=== PATIENT | female | born 1950 | race Caucasian/White ===

== ENCOUNTER 2020-03-30 15:59 | Emergency (ER) | payer MEDICARE ==
[2020-03-30] MEDS ORDERED: Zofran 4 MG/2 ML VIAL IV ONE (16:24)
[2020-03-30] MEDS ORDERED: Pepcid 20 MG VIAL IV ONE ×2 (16:24→16:29)
[2020-03-30] MEDS ORDERED: GI COCKTAIL 45 ML (Maalox/Lidocaine) PO ONE (16:24)
[2020-03-30] MEDS ORDERED: DEMEROL 25MG SYRINGE IV ONE (16:26)
[2020-03-30] MEDS ORDERED: Zofran 4 MG/2 ML VIAL ONE (16:29)
--- NOTE | 2020-03-30 16:29 | ERPHSYRPT ---
- History of Present Illness Time Seen by Provider: 03/30/20 16:21 Historian: patient Patient Subjective Stated Complaint: Pt stated that she began having pain in her mid epigastric region that radiates to her left lower quadrant of her abdomen, states that it has been coming and going but since yesterday it has been pretty consistent and rating the pain 10/10 Triage Nursing Assessment: Pt brought her self to the ER, holding right abdomen , rates pain 10/10, hypertensive, pulses normal, pain to left abdomen with palapatation, pt squirming in the bed and unable to get comfortable, skin n/w/d, Physician History: 70 years old female presented in the ER with chief complaint of off-and-on epigastric pain for quite some time which is progressively worsening and she is having constant pain since last night, moderate to severe intensity, sharp in nature, radiating to back, left upper and lower quadrants without any significant aggravating or relieving factors. Denies any nausea vomiting or diarrhea. No fever or chills reported. Denies any chest pain palpitations or shortness of breath. Timing/Duration: week(s), intermittent, gradual onset, worse Activities at Onset: rest Quality: sharpness Abdominal Pain Onset Location: epigastric Pain Radiation: LUQ, LLQ Severity of Pain-Max: severe Severity of Pain-Current: severe Modifying Factors: Improves With: nothing Associated Symptoms: back Allergies/Adverse Reactions: codeine Allergy (Verified 03/30/20 16:18) ketorolac tromethamine [From Toradol] Allergy (Verified 03/30/20 16:18) morphine Allergy (Verified 03/30/20 16:18) Home Medications: Carvedilol 12.5 mg [Coreg 12.5 mg] 12.5 mg PO DAILY 03/30/20 [History] Losartan Potassium 100 mg PO DAILY 03/30/20 [History] Sertraline HCl 50 mg [Zoloft 50 mg Tablet] 50 mg PO DAILY 03/30/20 [History] Zolpidem Tartrate 10 mg PO DAILY 03/30/20 [History] Hx Tetanus, Diphtheria Vaccination/Date Given: (UNKNOWN) Hx Influenza Vaccination/Date Given: Yes Hx Pneumococcal Vaccination/Date Given: No Travel Risk - International Travel Have you traveled outside of the country in past 3 weeks: No Have you or anyone close to you been diagnosed with or: No Do your reside in a community with a known COVID-19 case?: Yes If Yes where:: [place] - Coronavirus Screening Has patient experienced Coronavirus symptoms: No - Review of Systems Constitutional: No Symptoms Eyes: No Symptoms Ears, Nose, & Throat: No Symptoms Respiratory: No Symptoms Cardiac: No Symptoms Abdominal/Gastrointestinal: Abdominal Pain Genitourinary Symptoms: No Symptoms Musculoskeletal: No Symptoms Neurological: No Symptoms Psychological: No Symptoms Endocrine: No Symptoms Hematologic/Lymphatic: No Symptoms Immunological/Allergic: No Symptoms - Past Medical History Pertinent Past Medical History: Yes Cardiac History: High Cholesterol, Hypertension Psycho-Social History: Anxiety - Past Surgical History Past Surgical History: Yes Gastrointestinal: Cholecystectomy Musculoskeletal: Orthopedic Surgery Female Surgical History: Hysterectomy Other Surgical History: ERCP, EAR SURGERY X3, cochlear implant - Social History Smoking Status: Never smoker Exposure to second hand smoke: No Drug Use: none Patient Lives Alone: No - Nursing Vital Signs Nursing Vital Signs: Initial Vital Signs Pulse Rate 68 03/30/20 16:42 Respiratory Rate 16 03/30/20 16:42 Blood Pressure 176/84 03/30/20 16:42 O2 Sat by Pulse Oximetry 98 03/30/20 16:42 Pain Scale Pain Intensity 3 - Physical Exam General Appearance: no apparent distress Eye Exam: PERRL/EOMI, eyes nml inspection Ears, Nose, Throat Exam: normal ENT inspection, pharynx normal Neck Exam: normal inspection, supple, full range of motion Respiratory Exam: normal breath sounds, lungs clear Cardiovascular Exam: regular rate/rhythm, normal heart sounds Gastrointestinal/Abdomen Exam: soft, tenderness (Epigastric/left upper and lower quadrant/flank) Back Exam: normal inspection, normal range of motion Extremity Exam: normal inspection Neurologic Exam: alert, oriented x 3, cooperative Skin Exam: normal color SpO2 Interpretation: normal O2 Delivery: Room Air - Course Nursing assessment & vital signs reviewed: Yes EKG Interpreted by Me: RATE ([id number]), Sinus Rhythm, NORMAL AXIS, NORMAL INTERVALS, Non-specific ST Changes Ordered Tests: Active Orders 24 hr Category Date Time Status EKG-ER Only STAT Care 03/30/20 16:24 Active IV Insertion STAT Care 03/30/20 16:15 Active NPO (ED) STAT Care 03/30/20 16:24 Active ABDOMEN AND PELVIS W CONTRAST [CT] Stat Exams 03/30/20 18:04 Taken AMYLASE Stat Lab 03/30/20 17:00 Completed CBC W DIFF Stat Lab 03/30/20 17:00 Completed CMP Stat Lab 03/30/20 17:00 Completed LIPASE Stat Lab 03/30/20 17:00 Completed TROPONIN Q3H Lab 03/30/20 17:00 Completed TROPONIN Q3H Lab 03/30/20 19:30 Ordered TROPONIN Q3H Lab 03/30/20 22:30 Ordered TROPONIN Q3H Lab 03/31/20 01:30 Ordered TROPONIN Q3H Lab 03/31/20 04:30 Ordered UA W/RFX UR CULTURE Stat Lab 03/30/20 17:00 Completed Medication Summary Discontinued Medications Generic Name Dose Route Start Last Admin Trade Name Freq PRN Reason Stop Dose Admin Al Hydrox/Mg Hydrox/Simethicone Confirm 03/30/20 16:31 Maalox Es 30 Ml Unit Dose Administered 03/30/20 16:32 Dose 30 ml .ROUTE .STK-MED ONE Famotidine 20 mg 03/30/20 16:24 03/30/20 16:36 Pepcid 20 Mg Vial IV 03/30/20 16:25 20 mg STAT ONE Administration Famotidine Confirm 03/30/20 16:29 Pepcid 20 Mg Vial Administered 03/30/20 16:30 Dose 20 mg IV .STK-MED ONE Sodium Chloride 500 mls @ 499 mls/hr 03/30/20 16:24 03/30/20 19:05 Sodium Chloride 0.9% 1000 Ml IV 03/30/20 17:24 499 mls/hr .Q1H1M STA Infusion Sodium Chloride Confirm 03/30/20 16:31 Sodium Chloride 0.9% 1000 Ml Administered 03/30/20 16:32 Dose 1,000 mls @ ud .ROUTE .STK-MED ONE Lidocaine HCl Confirm 03/30/20 16:31 Xylocaine Hcl Viscous * Administered 03/30/20 16:32 Dose 15 ml .ROUTE .STK-MED ONE Magnesium Hydroxide 45 ml 03/30/20 16:24 03/30/20 16:37 Gi Cocktail 45 Ml (Maalox/Lidocaine) PO 03/30/20 16:25 45 ml STAT ONE Administration Meperidine HCl 25 mg 03/30/20 16:26 03/30/20 16:36 Demerol 25mg Syringe IV 03/30/20 16:27 25 mg STAT ONE Administration Meperidine HCl Confirm 03/30/20 16:30 Demerol 25mg Syringe Administered 03/30/20 16:31 Dose 25 mg .ROUTE .STK-MED ONE Ondansetron HCl 4 mg 03/30/20 16:24 03/30/20 16:36 Zofran 4 Mg/2 Ml Vial IV 03/30/20 16:25 4 mg STAT ONE Administration Ondansetron HCl Confirm 03/30/20 16:29 Zofran 4 Mg/2 Ml Vial Administered 03/30/20 16:30 Dose 4 mg .ROUTE .STK-MED ONE Lab/Rad Data: Laboratory Result Diagrams 03/30/20 17:00 03/30/20 17:00 Laboratory Results 03/30/20 03/30/20 03/30/20 Range/Units 17:00 17:00 17:00 WBC (4.0-10.5) K/mm3 RBC (4.1-5.4) M/mm3 Hgb (12.0-16.0) gm/dl Hct (35-47) % MCV (78-100) fl MCH (26-32) pg MCHC (32-36) g/dl RDW (11.5-14.0) % Plt Count (150-450) K/mm3 MPV (7.5-11.0) fl Gran % (36.0-66.0) % Eos # (Auto) (0-0.5) Absolute Lymphs (auto) (1.0-4.6) Absolute Monos (auto) (0.0-1.3) Lymphocytes % (24.0-44.0) % Monocytes % (0.0-12.0) % Eosinophils % (0.00-5.0) % Basophils % (0.0-0.4) % Absolute Granulocytes (1.4-6.9) Basophils # (0-0.4) Sodium 140 (137-145) mmol/L Potassium 3.8 (3.5-5.1) mmol/L Chloride 108 H (98-107) mmol/L Carbon Dioxide 23 (22-30) mmol/L Anion Gap 13.1 (5-15) MEQ/L BUN 10 (7-17) mg/dL Creatinine 1.01 (0.52-1.04) mg/dL Estimated GFR 57.6 ML/MIN Glucose 100 (74-106) mg/dL Calcium 9.0 (8.4-10.2) mg/dL Total Bilirubin 0.50 (0.2-1.3) mg/dL AST 26 (14-36) U/L ALT 17 (0-35) U/L Alkaline Phosphatase 105 (38-126) U/L Troponin I < 0.012 (0.000-0.034) ng/mL Serum Total Protein 7.6 (6.3-8.2) g/dL Albumin 4.1 (3.5-5.0) g/dL Amylase 80 (30-110) U/L Lipase 123 (23-300) U/L Urine Color STRAW (YELLOW) Urine Appearance CLEAR (CLEAR) Urine pH 6.0 (5-6) Ur Specific [place] 1.006 (1.005-1.025) Urine Protein NEGATIVE (Negative) Urine Ketones NEGATIVE (NEGATIVE) Urine Blood NEGATIVE (0-5) Maciel/ul Urine Nitrite NEGATIVE (NEGATIVE) Urine Bilirubin NEGATIVE (NEGATIVE) Urine Urobilinogen NEGATIVE (0-1) mg/dL Ur Leukocyte Esterase NEGATIVE (NEGATIVE) Urine WBC (Auto) NONE (0-5) /HPF Urine RBC (Auto) NONE (0-2) /HPF U Epithel Cells (Auto) NONE (FEW) /HPF Urine Bacteria (Auto) NONE (NEGATIVE) /HPF Urine Mucus (Auto) SLIGHT (NEGATIVE) /HPF Urine Culture Reflexed NO (NO) Urine Glucose NEGATIVE (NEGATIVE) mg/dL 03/30/20 Range/Units 17:00 WBC 5.7 (4.0-10.5) K/mm3 RBC 4.39 (4.1-5.4) M/mm3 Hgb 13.3 (12.0-16.0) gm/dl Hct 41.6 (35-47) % MCV 94.8 (78-100) fl MCH 30.3 (26-32) pg MCHC 32.0 (32-36) g/dl RDW 14.5 H (11.5-14.0) % Plt Count 213 (150-450) K/mm3 MPV 9.5 (7.5-11.0) fl Gran % 48.5 (36.0-66.0) % Eos # (Auto) 0.07 (0-0.5) Absolute Lymphs (auto) 2.55 (1.0-4.6) Absolute Monos (auto) 0.31 (0.0-1.3) Lymphocytes % 44.6 H (24.0-44.0) % Monocytes % 5.4 (0.0-12.0) % Eosinophils % 1.2 (0.00-5.0) % Basophils % 0.3 (0.0-0.4) % Absolute Granulocytes 2.77 (1.4-6.9) Basophils # 0.02 (0-0.4) Sodium (137-145) mmol/L Potassium (3.5-5.1) mmol/L Chloride (98-107) mmol/L Carbon Dioxide (22-30) mmol/L Anion Gap (5-15) MEQ/L BUN (7-17) mg/dL Creatinine (0.52-1.04) mg/dL Estimated GFR ML/MIN Glucose (74-106) mg/dL Calcium (8.4-10.2) mg/dL Total Bilirubin (0.2-1.3) mg/dL AST (14-36) U/L ALT (0-35) U/L Alkaline Phosphatase (38-126) U/L Troponin I (0.000-0.034) ng/mL Serum Total Protein (6.3-8.2) g/dL Albumin (3.5-5.0) g/dL Amylase (30-110) U/L Lipase (23-300) U/L Urine Color (YELLOW) Urine Appearance (CLEAR) Urine pH (5-6) Ur Specific [place] (1.005-1.025) Urine Protein (Negative) Urine Ketones (NEGATIVE) Urine Blood (0-5) Maciel/ul Urine Nitrite (NEGATIVE) Urine Bilirubin (NEGATIVE) Urine Urobilinogen (0-1) mg/dL Ur Leukocyte Esterase (NEGATIVE) Urine WBC (Auto) (0-5) /HPF Urine RBC (Auto) (0-2) /HPF U Epithel Cells (Auto) (FEW) /HPF Urine Bacteria (Auto) (NEGATIVE) /HPF Urine Mucus (Auto) (NEGATIVE) /HPF Urine Culture Reflexed (NO) Urine Glucose (NEGATIVE) mg/dL - Progress Progress: improved, re-examined Progress Note: 03/30/20 19:32 70 years old is evaluated for upper abdominal pain with radiation to the left groin. She is given Protonix along with pain medication and fluids, on reevaluation her pain is almost completely resolved. Acute abdomen work-up is negative including CT abdomen pelvis with contrast. I have also checked troponin which is negative and EKG did not show any acute ST elevations. Patient later told that she has a history of GERD in the past and was taking omeprazole but was taken off, with her symptoms and presentation, could be acid peptic disease. I have discussed with her about restarting PPIs and Carafate and outpatient follow-up with primary care and gastroenterology. At this point I do not think she needs any further work-up and is stable for discharge. Counseled pt/family regarding: lab results, diagnosis, need for follow-up, rad results - Departure Departure Disposition: Home Clinical Impression: Epigastric pain Condition: Stable Critical Care Time: No Referrals: HERLINDA LÓPEZ MD [Primary Care Provider] - (1-2 days for reevaluation) Instructions: Acute Abdomen (Belly Pain) Additional Instructions: Follow-up with primary care and gastroenterology for reevaluation. Return to ER for any worsening. Do not take ibuprofen, take Tylenol as needed only. Prescriptions: PANTOPRAZOLE 40 mg Tablet [Protonix 40MG Tablet] 40 mg PO QAM 30 Days #30 tab Sucralfate 1 gm [Carafate 1 GM] 1 g PO ACHS #60 tablet
[2020-03-30] MEDS ORDERED: DEMEROL 25MG SYRINGE ONE (16:30)
[2020-03-30] MEDS ORDERED: XYLOCAINE HCl Viscous ONE (16:31)
[2020-03-30] MEDS ORDERED: Sodium Chloride 0.9% 1000 ML 1,000 ML ONE (16:31)
[2020-03-30] MEDS ORDERED: MAALOX ES 30 ML UNIT DOSE ONE (16:31)
[2020-03-30 17:24] LABS: ALBUMIN 4.1 g/dL (3.5-5.0); ANION GAP 13.1 MEQ/L (5-15); BILIRUBIN,TOTAL 0.5 mg/dL (0.2-1.3); Creatinine 1 1.01 mg/dL (0.52-1.04); Potassium 3.8 mmol/L (3.5-5.1); Total Protein 7.6 g/dL (6.3-8.2)
[2020-03-30 17:26] LABS: Absolute Neutrophil Ct (ANC) 2.77 (1.4-6.9); BASOPHIL % 0.3 % (0.0-0.4); Basophil (Absolute #) 0.02 (0-0.4); Eosinophil % 1.2 % (0.00-5.0); Eosinophil (Absolute #) 0.07 (0-0.5); Hematocrit 41.6 % (35-47); Hemoglobin 13.3 gm/dl (12.0-16.0); Lymphocyte (Absolute #) 2.55 (1.0-4.6); Lymphocytes % 44.6 % (24.0-44.0); Mean Cell Volume 94.8 fl (78-100); Mean Corpuscular Hemoglobin 30.3 pg (26-32); Mean Platelet Volume 9.5 fl (7.5-11.0); Monocyte (Absolute #) 0.31 (0.0-1.3); Monocytes % 5.4 % (0.0-12.0); Neutrophil % 48.5 % (36.0-66.0); Platelet Count 213 K/mm3 (150-450); Red Blood Count 4.39 M/mm3 (4.1-5.4); Red Cell Distribution Width 14.5 % (11.5-14.0); White Blood Count 5.7 K/mm3 (4.0-10.5)
[2020-03-30 17:34] LABS: Appearance CLEAR (CLEAR); Bilirubin NEGATIVE (NEGATIVE); Blood NEGATIVE Ery/ul (0-5); Glucose NEGATIVE (NEGATIVE); Ketones NEGATIVE (NEGATIVE); Leukocyte Esterase NEGATIVE (NEGATIVE); Mucus SLIGHT /HPF (NEGATIVE); Nitrite NEGATIVE (NEGATIVE); Protein,Urine Dip NEGATIVE (Negative); Specific Gravity 1.006 (1.005-1.025); Urobilinogen NEGATIVE mg/dL (0-1)
[2020-03-30] MEDS ORDERED: NORCO 5/325 MG PO ONE (19:40)
[2020-03-30] MEDS ORDERED: NORCO 5/325 MG ONE (19:42)
[2020-03-30 19:48] VITALS: BP 157/84; PULSE 68; O2SAT 96
--- NOTE | 2020-03-30 21:33 | XRAY ---
Indication: Bilateral upper abdomen pain 2 weeks. Multiple contiguous axial images obtained through the abdomen and pelvis using 80 cc Isovue-370 contrast only. Comparison: None Lung bases demonstrates minimal bibasilar dependent atelectasis. No infiltrate or effusion. Heart is not enlarged. Noncontrasted stomach and bowel loops appear nonobstructed. Appendix not seen. Minimal sigmoid diverticulosis without diverticulitis. Previous cholecystectomy and hysterectomy. No free fluid/air. Kidneys enhance and excrete with 1 m right mid renal cortical cyst. Remaining liver, pancreas, spleen, adrenal glands, kidneys, ureters, and bladder appear unremarkable. Mild scattered aortoiliac calcifications. No AAA or pathological retroperitoneal lymphadenopathy. Osseous structures intact with mild degenerative changes throughout the thoracolumbar spine. Impression: 1. Sigmoid diverticulosis and right renal cyst. 2. Remaining CT abdomen/pelvis with contrast exam is negative.
== END 2020-03-30 19:58 | disposition home or self-care (01) ==
LOC: ED 15:59
DX: R10.13 Epigastric pain (principal); R10.32 Left lower quadrant pain; R10.12 Left upper quadrant pain; Z79.899 Other long term (current) drug therapy; I10 Essential (primary) hypertension; E78.00 Pure hypercholesterolemia, unspecified
CPT/HCPCS: 36000; 36415; 74177; 80053; 81001; 82150; 83690; 84484; 85025; 93005; 96360; 96374; 96375; 99284; J2175; J2405; A9270-GY

== ENCOUNTER 2023-05-06 11:57 | Emergency (ER) | payer MEDICARE ==
[2023-05-06] MEDS ORDERED: Zofran 4 MG/2 ML VIAL IV ONE (12:14)
[2023-05-06] MEDS ORDERED: Sodium Chloride 0.9% 1000 ML 1,000 ML IV STA ×2 (12:14→14:31)
[2023-05-06] MEDS ORDERED: Zofran 4 MG/2 ML VIAL ONE (12:23)
[2023-05-06] MEDS ORDERED: Sodium Chloride 0.9% 1000 ML 1,000 ML ONE ×3 (12:23→14:33)
[2023-05-06 12:27] LABS: Absolute Neutrophil Ct (ANC) 4.65 x10^3/uL (1.4-6.9); BASOPHIL % 0.3 % (0.0-0.4); Basophil (Absolute #) 0.02 x10^3/uL (0-0.4); Eosinophil % 1.3 % (0.00-5.0); Eosinophil (Absolute #) 0.09 x10^3/uL (0-0.5); Hematocrit 37.5 % (35-47); Hemoglobin 11.8 g/dL (12.0-16.0); IMMATURE GRAN # 0.02 x10^3u/L (0.00-0.03); IMMATURE GRAN % 0.3 % (0.00-0.4); Lymphocyte (Absolute #) 1.66 x10^3/uL (1.0-4.6); Lymphocytes % 24.5 % (24.0-44.0); Mean Cell Volume 99.7 fL (78-100); Mean Corpuscular Hemoglobin 31.4 pg (26-32); Mean Corpuscular Hgb Concent. 31.5 g/dL (32-36); Mean Platelet Volume 10.1 fL (7.5-11.0); Monocyte (Absolute #) 0.34 x10^3/uL (0.0-1.3); Neutrophil % 68.6 % (36.0-66.0); Platelet Count 234 x10^3/uL (150-450); Red Blood Count 3.76 x10^6/uL (4.1-5.4); Red Cell Distribution Width 14.9 % (11.5-14.0); White Blood Count 6.8 x10^3/uL (4.0-10.5)
[2023-05-06 12:42] LABS: INR 1.02 (0.8-3.0); PROTIME 11.1 SECONDS (9.4-12.5)
[2023-05-06 13:09] LABS: ALBUMIN 3.8 g/dL (3.5-5.0); ANION GAP 12.5 MEQ/L (5-15); BILIRUBIN,TOTAL 0.9 mg/dL (0.2-1.3); Calcium 8.5 mg/dL (8.4-10.2); Creatinine 1 1.43 mg/dL (0.52-1.04); EST GLOMERULAR FILTRATION RATE 38.2 ML/MIN; Total Protein 7.3 g/dL (6.3-8.2)
--- NOTE | 2023-05-06 13:15 | ERPHSYRPT ---
- History of Present Illness Time Seen by Provider: 05/06/23 12:20 Source: patient Exam Limitations: no limitations Patient Subjective Stated Complaint: Diarrhea Triage Nursing Assessment: Patient brought back to ED per w/c and transferred self to bed. Patient A+O X 3. Patient's skin pink, warm and dry. Patient complains of N/V, diarrhea and dizziness for the past 4 days. Patient denies pain or discomfort. Patient was seen in [facility] prior to coming to ED and was tested for COVID/FLU/RSV, which were negative. Patient was sent to ER for furt her eval. Abdomen soft and round with BS X 4. Physician History: Patient is a 73-year-old white female who presents with a complaint of diarrhea for 4 days and then for the last 2 days she has had profound nausea and vomiting she also has been dizzy with standing. She denies any fever or sweats but says she has had some chills her pain is primarily in the epigastric area. She was seen at the [facility] prior to arrival in the ER where she had COVID flu and RSV test which were all negative and they sent her to the ER for further evaluation. Timing/Duration: day(s) (4) Severity: severe Modifying Factors: Improves With: nothing Associated Symptoms: nausea, vomiting, abdominal pain Allergies/Adverse Reactions: codeine Allergy (Verified 05/06/23 12:07) ketorolac tromethamine [From Toradol] Allergy (Verified 05/06/23 12:07) morphine Allergy (Verified 05/06/23 12:07) Home Medications: Carvedilol 12.5 mg [Coreg 12.5 mg] 12.5 mg PO DAILY 03/30/20 [History] Sertraline HCl 50 mg [Zoloft 50 mg Tablet] 50 mg PO DAILY 03/30/20 [History] Hx Tetanus, Diphtheria Vaccination/Date Given: (UNKNOWN) Hx Influenza Vaccination/Date Given: Yes Hx Pneumococcal Vaccination/Date Given: Yes Immunizations Up to Date: Yes Travel Risk - International Travel Have you traveled outside of the country in past 3 weeks: No - Coronavirus Screening Are you exhibiting any of the following symptoms?: No Close contact with a COVID-19 positive Pt in past 14-21 Days: No - Vaccine Status Have you recieved a Covid-19 vaccination: Yes Financial Planning Consultant: Unknown - Vaccination Dates Dates if Unknown: na - Review of Systems Constitutional: No Fever, No Chills Eyes: No Symptoms Ears, Nose, & Throat: No Symptoms Respiratory: No Cough, No Dyspnea Cardiac: No Chest Pain, No Edema, No Syncope Abdominal/Gastrointestinal: Abdominal Pain, Nausea, Vomiting, Diarrhea Genitourinary Symptoms: No Dysuria Musculoskeletal: No Back Pain, No Neck Pain Skin: No Rash Neurological: Vertigo, No Dizziness, No Focal Weakness, No Sensory Changes Psychological: No Symptoms Endocrine: No Symptoms All Other Systems: Reviewed and Negative - Past Medical History Pertinent Past Medical History: Yes Neurological History: No Pertinent History Cardiac History: Coronary Artery Disease, High Cholesterol, Hypertension Respiratory History: No Pertinent History Endocrine Medical History: No Pertinent History Psycho-Social History: Anxiety Other Medical History: Cardiac stent 12/2022. R cochlear implant - Past Surgical History Past Surgical History: Yes Gastrointestinal: Cholecystectomy Musculoskeletal: Orthopedic Surgery Female Surgical History: Hysterectomy Other Surgical History: ERCP, EAR SURGERY X3, cochlear implant - Social History Smoking Status: Never smoker Exposure to second hand smoke: No Drug Use: none Patient Lives Alone: No - Nursing Vital Signs Nursing Vital Signs: Initial Vital Signs Temperature 96.1 F 05/06/23 12:11 Pulse Rate 61 05/06/23 12:11 Respiratory Rate 18 05/06/23 12:11 Blood Pressure 126/65 05/06/23 12:11 O2 Sat by Pulse Oximetry 98 05/06/23 12:11 Pain Scale Pain Intensity 0 - Physical Exam General Appearance: no apparent distress, alert Eye Exam: PERRL/EOMI, eyes nml inspection Ears, Nose, Throat Exam: normal ENT inspection, TMs normal, pharynx normal, mo ist mucous membranes Neck Exam: normal inspection, non-tender, supple, full range of motion Respiratory Exam: normal breath sounds, lungs clear, No respiratory distress Cardiovascular Exam: regular rate/rhythm, normal heart sounds, normal peripheral pulses Gastrointestinal/Abdomen Exam: soft, normal bowel sounds, tenderness (Some slight tenderness without guarding or rebound in the epigastric area), No mass Pelvic Exam: not done Rectal Exam: deferred Back Exam: normal inspection, normal range of motion, No CVA tenderness, No vertebral tenderness Extremity Exam: normal inspection, normal range of motion, pelvis stable Neurologic Exam: alert, oriented x 3, cooperative, normal mood/affect, nml cerebellar function, nml station & gait, sensation nml, No motor deficits Skin Exam: normal color, warm, dry, No rash Lymphatic Exam: No adenopathy SpO2 Interpretation: normal SpO2: 98 O2 Delivery: Room Air - Course Nursing assessment & vital signs reviewed: Yes EKG Interpreted by Me: RATE (57), Sinus Rhythm, NORMAL AXIS, NORMAL INTERVALS, NORMAL QRS, NORMAL ST-T - CT Exams Abdomen/Pelvis CT Interpretation: Tele-radiologist Report (Stable) Ordered Tests: Active Orders 24 hr Category Date Time Status IV Insertion STAT Care 05/06/23 12:14 Active Orthostatic Vital Signs STAT Care 05/06/23 12:14 Active ABDOMEN AND PELVIS W/0 CONTRAS [CT] Stat Exams 05/06/23 12:14 Taken AMYLASE Stat Lab 05/06/23 12:20 Completed CBC W DIFF Stat Lab 05/06/23 12:20 Completed CMP Stat Lab 05/06/23 12:20 Completed CULTURE,URINE Stat Lab 05/06/23 14:05 Received LIPASE Stat Lab 05/06/23 12:20 Completed Lactic Acid Stat Lab 05/06/23 12:23 Completed POCT GLUCOSE Stat Lab 05/06/23 12:15 Completed PROTIME WITH INR Stat Lab 05/06/23 12:20 Completed TROPONIN Q4H Lab 05/06/23 12:20 Completed TROPONIN Q4H Lab 05/06/23 16:30 Ordered TROPONIN Q4H Lab 05/06/23 20:30 Ordered Medication Summary Discontinued Medications Generic Name Dose Route Start Last Admin Trade Name Mohitq PRN Reason Stop Dose Admin Sodium Chloride 1,000 mls @ 999 mls/hr 05/06/23 12:14 05/06/23 14:15 Sodium Chloride 0.9% 1000 Ml IV 05/06/23 13:14 Infused .Q1H1M STA Infusion Sodium Chloride Confirm 05/06/23 12:23 Sodium Chloride 0.9% 1000 Ml Administered 05/06/23 12:24 Dose 1,000 mls @ ud .ROUTE .STK-MED ONE Sodium Chloride 1,000 mls @ 999 mls/hr 05/06/23 13:37 05/06/23 15:42 Sodium Chloride 0.9% 1000 Ml IV 05/06/23 14:37 Infused .Q1H1M STA Infusion Sodium Chloride Confirm 05/06/23 13:40 Sodium Chloride 0.9% 1000 Ml Administered 05/06/23 13:41 Dose 1,000 mls @ ud .ROUTE .STK-MED ONE Sodium Chloride 1,000 mls @ 999 mls/hr 05/06/23 14:31 05/06/23 15:42 Sodium Chloride 0.9% 1000 Ml IV 05/06/23 15:31 Infused .Q1H1M STA Infusion Sodium Chloride Confirm 05/06/23 14:33 Sodium Chloride 0.9% 1000 Ml Administered 05/06/23 14:34 Dose 1,000 mls @ ud .ROUTE .STK-MED ONE Metronidazole 500 mg in 100 mls @ 200 mls/hr 05/06/23 15:39 05/06/23 16:01 Flagyl 500 Mg Ivpb IV 05/06/23 16:08 200 mls/hr STAT STA 200 mls/hr Administration Metronidazole Confirm 05/06/23 15:55 Flagyl 500 Mg Ivpb Administered 05/06/23 15:56 Dose 500 mg in 100 mls @ ud IV .STK-MED ONE Ondansetron HCl 4 mg 05/06/23 12:14 05/06/23 12:24 Ondansetron Hcl 4 Mg/2 Ml Vial IV 05/06/23 12:15 4 mg STAT ONE Administration Ondansetron HCl Confirm 05/06/23 12:23 Ondansetron Hcl 4 Mg/2 Ml Vial Administered 05/06/23 12:24 Dose 4 mg .ROUTE .STK-MED ONE Lab/Rad Data: Laboratory Result Diagrams 05/06/23 12:20 05/06/23 12:20 Laboratory Results 05/06/23 05/06/23 05/06/23 Range/Units 12:23 12:20 12:20 WBC (4.0-10.5) x10^3/uL RBC (4.1-5.4) x10^6/uL Hgb (12.0-16.0) g/dL Hct (35-47) % MCV (78-100) fL MCH (26-32) pg MCHC (32-36) g/dL RDW (11.5-14.0) % Plt Count (150-450) x10^3/uL MPV (7.5-11.0) fL Gran % (36.0-66.0) % Immature Gran % (Auto) (0.00-0.4) % Nucleat RBC Rel Count (0.00-0.1) % Eos # (Auto) (0-0.5) x10^3/uL Immature Gran # (Auto) (0.00-0.03) x10^3u/L Absolute Lymphs (auto) (1.0-4.6) x10^3/uL Absolute Monos (auto) (0.0-1.3) x10^3/uL Absolute Nucleated RBC (0.00-0.01) x10^3u/L Lymphocytes % (24.0-44.0) % Monocytes % (0.0-12.0) % Eosinophils % (0.00-5.0) % Basophils % (0.0-0.4) % Absolute Granulocytes (1.4-6.9) x10^3/uL Basophils # (0-0.4) x10^3/uL PT 11.1 (9.4-12.5) SECONDS INR 1.02 (0.8-3.0) Sodium (137-145) mmol/L Potassium (3.5-5.1) mmol/L Chloride (98-107) mmol/L Carbon Dioxide (22-30) mmol/L Anion Gap (5-15) MEQ/L BUN (7-17) mg/dL Creatinine (0.52-1.04) mg/dL Estimated GFR ML/MIN Glucose (74-106) mg/dL POC Glucometer (74 to 106) mg/dL Lactic Acid 1.3 (0.4-2.0) Calcium (8.4-10.2) mg/dL Total Bilirubin (0.2-1.3) mg/dL AST (14-36) U/L ALT (0-35) U/L Alkaline Phosphatase (38-126) U/L Troponin I < 0.012 (0.000-0.034) ng/mL Serum Total Protein (6.3-8.2) g/dL Albumin (3.5-5.0) g/dL Amylase (30-110) U/L Lipase (23-300) U/L 05/06/23 05/06/23 05/06/23 Range/Units 12:20 12:20 12:15 WBC 6.8 (4.0-10.5) x10^3/uL RBC 3.76 L (4.1-5.4) x10^6/uL Hgb 11.8 L (12.0-16.0) g/dL Hct 37.5 (35-47) % MCV 99.7 (78-100) fL MCH 31.4 (26-32) pg MCHC 31.5 L (32-36) g/dL RDW 14.9 H (11.5-14.0) % Plt Count 234 (150-450) x10^3/uL MPV 10.1 (7.5-11.0) fL Gran % 68.6 H (36.0-66.0) % Immature Gran % (Auto) 0.3 (0.00-0.4) % Nucleat RBC Rel Count 0.0 (0.00-0.1) % Eos # (Auto) 0.09 (0-0.5) x10^3/uL Immature Gran # (Auto) 0.02 (0.00-0.03) x10^3u/L Absolute Lymphs (auto) 1.66 (1.0-4.6) x10^3/uL Absolute Monos (auto) 0.34 (0.0-1.3) x10^3/uL Absolute Nucleated RBC 0.00 (0.00-0.01) x10^3u/L Lymphocytes % 24.5 (24.0-44.0) % Monocytes % 5.0 (0.0-12.0) % Eosinophils % 1.3 (0.00-5.0) % Basophils % 0.3 (0.0-0.4) % Absolute Granulocytes 4.65 (1.4-6.9) x10^3/uL Basophils # 0.02 (0-0.4) x10^3/uL PT (9.4-12.5) SECONDS INR (0.8-3.0) Sodium 138 (137-145) mmol/L Potassium 4.0 (3.5-5.1) mmol/L Chloride 106 (98-107) mmol/L Carbon Dioxide 23 (22-30) mmol/L Anion Gap 12.5 (5-15) MEQ/L BUN 14 (7-17) mg/dL Creatinine 1.43 H (0.52-1.04) mg/dL Estimated GFR 38.2 ML/MIN Glucose 103 (74-106) mg/dL POC Glucometer 103 (74 to 106) mg/dL Lactic Acid (0.4-2.0) Calcium 8.5 (8.4-10.2) mg/dL Total Bilirubin 0.90 (0.2-1.3) mg/dL AST 23 (14-36) U/L ALT 19 (0-35) U/L Alkaline Phosphatase 92 (38-126) U/L Troponin I (0.000-0.034) ng/mL Serum Total Protein 7.3 (6.3-8.2) g/dL Albumin 3.8 (3.5-5.0) g/dL Amylase 65 (30-110) U/L Lipase 106 (23-300) U/L - Progress Progress: improved Medical Desision Making - Independent Historian Additional History obtained from: Relative/friend - Diagnostic Testing Diagnostic test were ordered, analyzed, and reviewed by me: Yes Radiological Interpretation: Reviewed by me - Risk of complications Low Risk: Low risk of morbidity from additional dx testing or treatment - Departure Departure Disposition: Home Clinical Impression: Gastroenteritis Condition: Stable Critical Care Time: No Referrals: HERLINDA LÓPEZ MD [Primary Care Provider] - Follow up/PCP as directed Instructions: Diarrhea and Travelers' Diarrhea, Adult (DC) Prescriptions: Ondansetron ODT 4 MG [Zofran Odt 4 mg] 4 mg PO Q6H PRN PRN #10 tablet PRN Reason: Vomiting Metronidazole 500 mg [Flagyl 500 MG] 500 mg PO TID #21 tablet
[2023-05-06] MEDS: Sodium Chloride 0.9% 1000 ML 1,000 ML IV STA ×2 (13:40→14:33)
[2023-05-06] MEDS ORDERED: FLAGYL 500 MG IVPB 500 MG/100 ML BAG IV STA (15:39)
[2023-05-06] MEDS ORDERED: FLAGYL 500 MG IVPB 500 MG/100 ML BAG IV ONE (15:55)
--- NOTE | 2023-05-06 16:43 | XRAY ---
CLINICAL HISTORY:Nausea, vomiting, diarrhea and diziness since 4 days. COMPARISON:Prior CT Abdomen from 03/30/2020. TECHNIQUES:CT of the abdomen and pelvis was performed with axial images as well as sagittal and coronal reconstruction images without intravenous contrast. FINDINGS: Scan through the lower chest reveals right medial basal segment small pulmonary hamartoma (1 cm). Otherwise unremarkable lung basis and heart. Abdomen: The liver is of average size and measures 15 cm. No focal or diffuse parenchymal abnormality. The portal vein, intrahepatic biliary radicals and the bile ducts are normal. The spleen, pancreas, adrenal glands are unremarkable. The kidneys are unremarkable. They are normal in size and shape. No calculi or hydronephrosis. Few small simple renal cortical cysts noted. The gallbladder is non visualized with metalic surgical clips seen at its bed. The ascending colon, the transverse colon, the descending colon, visualized small bowel loops are unremarkable. There is no evidence of significant enlargement of the mesenteric or retroperitoneal lymph nodes. Atherosclerotic mural calcificatiosn of the abdominal aorta and iliac arteries. Pelvis: The urinary bladder is unremarkable. The rectosigmoid colon is unremarkable. Evidence of cedeño-hystrectomy. No detected pelvic mass lesions or collections. No significant of pelvic lymphadenopathy. No definite bony abnormalities could be depicted. IMPRESSION: 1. Right basal pulmonary hamartoma. 2. Status post cholecystectomy. 3. Rest of the CT scan is unremarkable. 4. Stable findings when compared with prior study. Electronically Signed by: Marty Munson MD. (05/06/2023 15:38:05 [facility])
[2023-05-06 17:13] VITALS: BP 139/86; PULSE 61; O2SAT 100
[2023-05-06 17:45] LABS: 027 TOX PROD PRESUMPTIVE NEGATIVE (NEGATIVE); TOXIGENIC C. DIFF ORG NEGATIVE (NEGATIVE)
== END 2023-05-06 17:08 | disposition home or self-care (01) ==
LOC: ED 11:57
DX: K52.9 Noninfective gastroenteritis and colitis, unspecified (principal); R11.2 Nausea with vomiting, unspecified; R42 Dizziness and giddiness; R10.13 Epigastric pain; E78.5 Hyperlipidemia, unspecified; I10 Essential (primary) hypertension; Z79.899 Other long term (current) drug therapy; R19.7 Diarrhea, unspecified; I25.10 Atherosclerotic heart disease of native coronary artery without angina pectoris
CPT/HCPCS: 36000; 36415; 74176; 80053; 82150; 82947; 83605; 83690; 84484; 85025; 85610; 87046; 87077; 87086; 87186; 87328; 87329; 87493; 93005; 96360; 96365; 96374; 99284; J2405

== ENCOUNTER 2023-05-10 03:44 | Emergency (ER) | payer MEDICARE ==
--- NOTE | 2023-05-10 03:53 | ERPHSYRPT ---
- History of Present Illness Time Seen by Provider: 05/10/23 03:53 Historian: patient Exam Limitations: no limitations Physician History: 73-year-old female presents to the emergency room with an 8-day history of intractable nausea, vomiting and diarrhea. She was seen in the emergency room on 05/06, was diagnosed with gastroenteritis and was sent home with Flagyl. Since then patient has had no improvement and continues to have 4-5 episodes of vomiting a day. Was able to keep some food down yesterday but has been able unable to eat or drink anything all day today. She denies any recent fevers in the last 24 hours. Her abdominal pain is in the right upper quadrant. She has a history of cholecystectomy and multiple ERCPs in the past. Timing/Duration: day(s) (8) Activities at Onset: none Quality: sharpness Abdominal Pain Onset Location: RUQ Pain Radiation: no radiation Severity of Pain-Max: severe Severity of Pain-Current: severe Modifying Factors: Improves With: nothing. Worsens With: eating, movement, palpation, vomiting Associated Symptoms: diarrhea, loss of appetite, nausea, vomiting, No fever/chills, No neck pain, No rash, No shortness of breath Previous symptoms: same symptoms as today Allergies/Adverse Reactions: codeine Allergy (Verified 05/10/23 03:56) ketorolac tromethamine [From Toradol] Allergy (Verified 05/10/23 03:56) morphine Allergy (Verified 05/10/23 03:56) Home Medications: Carvedilol 12.5 mg [Coreg 12.5 mg] 12.5 mg PO BID 03/30/20 [History] Sertraline HCl 50 mg [Zoloft 50 mg Tablet] 50 mg PO DAILY 03/30/20 [History] Hx Tetanus, Diphtheria Vaccination/Date Given: (UNKNOWN) Hx Influenza Vaccination/Date Given: Yes Hx Pneumococcal Vaccination/Date Given: Yes Travel Risk - Vaccine Status Have you recieved a Covid-19 vaccination: Yes Last Turner: Unknown - Vaccination Dates Dates if Unknown: na - Review of Systems Constitutional: Weakness, No Fever, No Chills Eyes: No Symptoms Ears, Nose, & Throat: No Symptoms Respiratory: No Symptoms Cardiac: No Symptoms Abdominal/Gastrointestinal: Abdominal Pain (RUQ), Nausea, Vomiting, Diarrhea, Appetite Changes, No Constipation, No Hematemesis, No Hematochezia, No Melena Genitourinary Symptoms: Flank Pain, No Dysuria, No Frequency, No Hematuria Musculoskeletal: No Symptoms Skin: No Symptoms Neurological: No Symptoms Psychological: No Symptoms Endocrine: No Symptoms Hematologic/Lymphatic: No Symptoms Immunological/Allergic: No Symptoms All Other Systems: Reviewed and Negative - Past Medical History Pertinent Past Medical History: Yes Neurological History: No Pertinent History Cardiac History: Coronary Artery Disease, High Cholesterol, Hypertension Respiratory History: No Pertinent History Endocrine Medical History: No Pertinent History Psycho-Social History: Anxiety Other Medical History: Cardiac stent 12/2022. R cochlear implant - Past Surgical History Past Surgical History: Yes Gastrointestinal: Cholecystectomy Musculoskeletal: Orthopedic Surgery Female Surgical History: Hysterectomy Other Surgical History: ERCP, EAR SURGERY X3, cochlear implant - Social History Smoking Status: Never smoker Exposure to second hand smoke: No Drug Use: none Patient Lives Alone: No - Nursing Vital Signs Nursing Vital Signs: Initial Vital Signs Temperature 97.8 F 05/10/23 03:58 Pulse Rate 75 05/10/23 03:58 Respiratory Rate 20 05/10/23 03:58 Blood Pressure 175/89 05/10/23 03:58 O2 Sat by Pulse Oximetry 99 05/10/23 03:58 Pain Scale Pain Intensity 0 - Physical Exam General Appearance: moderate distress Eye Exam: eyes nml inspection Ears, Nose, Throat Exam: normal ENT inspection Neck Exam: normal inspection, full range of motion Respiratory Exam: normal breath sounds, lungs clear, airway intact, No respiratory distress Cardiovascular Exam: regular rate/rhythm, normal heart sounds, capillary refill <2 sec, No edema Gastrointestinal/Abdomen Exam: soft, normal bowel sounds, tenderness (RUQ), guarding, No distention, No rebound Back Exam: normal inspection, No CVA tenderness Extremity Exam: normal inspection, No swelling, No tenderness Neurologic Exam: alert, oriented x 3, cooperative Skin Exam: warm, dry, pale SpO2 Interpretation: normal O2 Delivery: Room Air - Course Nursing assessment & vital signs reviewed: Yes EKG Interpreted by Me: RATE (61), Sinus Rhythm, NORMAL AXIS, NORMAL INTERVALS, NORMAL ST-T Ordered Tests: Active Orders 24 hr Category Date Time Status EKG-ER Only STAT Care 05/10/23 04:10 Active IV Insertion STAT Care 05/10/23 04:10 Active NPO (ED) STAT Care 05/10/23 04:10 Active ABDOMEN AND PELVIS W/0 CONTRAS [CT] Stat Exams 05/10/23 04:11 Taken CBC W DIFF Stat Lab 05/10/23 04:27 Completed CMP Stat Lab 05/10/23 04:27 Completed LIPASE Stat Lab 05/10/23 04:27 Completed Lactic Acid Stat Lab 05/10/23 04:40 Completed TROPONIN Q4H Lab 05/10/23 04:27 Completed TROPONIN Q4H Lab 05/10/23 08:15 Ordered TROPONIN Q4H Lab 05/10/23 12:15 Ordered UA W/RFX UR CULTURE Stat Lab 05/10/23 04:47 Completed Medication Summary Discontinued Medications Generic Name Dose Route Start Last Admin Trade Name Freq PRN Reason Stop Dose Admin Droperidol 1.25 mg 05/10/23 04:10 05/10/23 04:20 Droperidol 5 Mg/2 Ml Vial IV 05/10/23 04:11 1.25 mg STAT ONE Administration Droperidol Confirm 05/10/23 04:18 Droperidol 5 Mg/2 Ml Vial Administered 05/10/23 04:19 Dose 5 mg .ROUTE .STK-MED ONE Sodium Chloride 1,000 mls @ 999 mls/hr 05/10/23 04:10 05/10/23 05:53 Sodium Chloride 0.9% 1000 Ml IV 05/10/23 05:10 Infused .Q1H1M STA Infusion Sodium Chloride Confirm 05/10/23 04:18 Sodium Chloride 0.9% 1000 Ml Administered 05/10/23 04:19 Dose 1,000 mls @ ud .ROUTE .STK-MED ONE Lab/Rad Data: Laboratory Result Diagrams 05/10/23 04:27 05/10/23 04:27 Laboratory Results 05/10/23 05/10/23 05/10/23 Range/Units 04:47 04:40 04:27 WBC (4.0-10.5) x10^3/uL RBC (4.1-5.4) x10^6/uL Hgb (12.0-16.0) g/dL Hct (35-47) % MCV (78-100) fL MCH (26-32) pg MCHC (32-36) g/dL RDW (11.5-14.0) % Plt Count (150-450) x10^3/uL MPV (7.5-11.0) fL Gran % (36.0-66.0) % Immature Gran % (Auto) (0.00-0.4) % Nucleat RBC Rel Count (0.00-0.1) % Eos # (Auto) (0-0.5) x10^3/uL Immature Gran # (Auto) (0.00-0.03) x10^3u/L Absolute Lymphs (auto) (1.0-4.6) x10^3/uL Absolute Monos (auto) (0.0-1.3) x10^3/uL Absolute Nucleated RBC (0.00-0.01) x10^3u/L Lymphocytes % (24.0-44.0) % Monocytes % (0.0-12.0) % Eosinophils % (0.00-5.0) % Basophils % (0.0-0.4) % Absolute Granulocytes (1.4-6.9) x10^3/uL Basophils # (0-0.4) x10^3/uL Sodium (137-145) mmol/L Potassium (3.5-5.1) mmol/L Chloride (98-107) mmol/L Carbon Dioxide (22-30) mmol/L Anion Gap (5-15) MEQ/L BUN (7-17) mg/dL Creatinine (0.52-1.04) mg/dL Estimated GFR ML/MIN Glucose (74-106) mg/dL Lactic Acid 1.3 (0.4-2.0) Calcium (8.4-10.2) mg/dL Total Bilirubin (0.2-1.3) mg/dL AST (14-36) U/L ALT (0-35) U/L Alkaline Phosphatase (38-126) U/L Troponin I < 0.012 (0.000-0.034) ng/mL Serum Total Protein (6.3-8.2) g/dL Albumin (3.5-5.0) g/dL Lipase (23-300) U/L Urine Color Yellow (Yellow) Urine Appearance Clear (Clear) Urine pH 8.0 (4.6-8.0) Ur Specific [place] 1.010 (1.005-1.030) Urine Protein Negative (Negative) Urine Glucose (UA) Negative (Negative) mg/dL Urine Ketones Negative (Negative) Urine Blood Negative (Negative) Urine Nitrite Negative (Negative) Urine Bilirubin Negative (Negative) Urine Urobilinogen 0.2 (0.2) mg/dL Ur Leukocyte Esterase Trace A (Negative) U Hyaline Cast (Auto) NONE SEEN (0-2) /LPF Urine Microscopic RBC 0-2 (0-5) /HPF Urine Microscopic WBC 0-2 (0-5) /HPF Ur Epithelial Cells None Seen (None Seen) /HPF Urine Bacteria None Seen (None Seen) /HPF Urine Culture Reflexed NO (NO) 05/10/23 05/10/23 Range/Units 04:27 04:27 WBC 7.1 (4.0-10.5) x10^3/uL RBC 3.70 L (4.1-5.4) x10^6/uL Hgb 11.5 L (12.0-16.0) g/dL Hct 35.3 (35-47) % MCV 95.4 (78-100) fL MCH 31.1 (26-32) pg MCHC 32.6 (32-36) g/dL RDW 14.6 H (11.5-14.0) % Plt Count 207 (150-450) x10^3/uL MPV 9.7 (7.5-11.0) fL Gran % 43.8 (36.0-66.0) % Immature Gran % (Auto) 0.1 (0.00-0.4) % Nucleat RBC Rel Count 0.0 (0.00-0.1) % Eos # (Auto) 0.15 (0-0.5) x10^3/uL Immature Gran # (Auto) 0.01 (0.00-0.03) x10^3u/L Absolute Lymphs (auto) 3.33 (1.0-4.6) x10^3/uL Absolute Monos (auto) 0.47 (0.0-1.3) x10^3/uL Absolute Nucleated RBC 0.00 (0.00-0.01) x10^3u/L Lymphocytes % 47.1 H (24.0-44.0) % Monocytes % 6.6 (0.0-12.0) % Eosinophils % 2.1 (0.00-5.0) % Basophils % 0.3 (0.0-0.4) % Absolute Granulocytes 3.09 (1.4-6.9) x10^3/uL Basophils # 0.02 (0-0.4) x10^3/uL Sodium 140 (137-145) mmol/L Potassium 3.7 (3.5-5.1) mmol/L Chloride 105 (98-107) mmol/L Carbon Dioxide 26 (22-30) mmol/L Anion Gap 12.3 (5-15) MEQ/L BUN 7 (7-17) mg/dL Creatinine 1.20 H (0.52-1.04) mg/dL Estimated GFR 46.8 ML/MIN Glucose 109 H (74-106) mg/dL Lactic Acid (0.4-2.0) Calcium 9.0 (8.4-10.2) mg/dL Total Bilirubin 0.60 (0.2-1.3) mg/dL AST 29 (14-36) U/L ALT 21 (0-35) U/L Alkaline Phosphatase 98 (38-126) U/L Troponin I (0.000-0.034) ng/mL Serum Total Protein 7.6 (6.3-8.2) g/dL Albumin 4.0 (3.5-5.0) g/dL Lipase 147 (23-300) U/L Urine Color (Yellow) Urine Appearance (Clear) Urine pH (4.6-8.0) Ur Specific [place] (1.005-1.030) Urine Protein (Negative) Urine Glucose (UA) (Negative) mg/dL Urine Ketones (Negative) Urine Blood (Negative) Urine Nitrite (Negative) Urine Bilirubin (Negative) Urine Urobilinogen (0.2) mg/dL Ur Leukocyte Esterase (Negative) U Hyaline Cast (Auto) (0-2) /LPF Urine Microscopic RBC (0-5) /HPF Urine Microscopic WBC (0-5) /HPF Ur Epithelial Cells (None Seen) /HPF Urine Bacteria (None Seen) /HPF Urine Culture Reflexed (NO) - Progress Progress: improved Progress Note: Patient responded extremely well to the IV fluid bolus and droperidol. On reevaluation her pain is decreased to a 3 and no longer has nausea. She has had no episodes of vomiting or diarrhea since arrival to the emergency room. Her laboratory evaluation was improved from her visit on the her hemoglobin was 11.5 which is stable from her previous. Her creatinine had improved to 1.2 down from 1.45. Her lipase was 147 and initial troponin was negative. She had a normal total bilirubin and liver function as well so my concern for biliary issues is low. CT abdomen pelvis without contrast was ordered, but radiology group has been having issues with timely reads overnight and patient would like to go home since she is feeling so much better. I discussed risk versus benefits with patient and we agreed that we will discharge the patient home and if anything arises from the official CT scan read we will call the patient and she will return and set of leaving AGAINST MEDICAL ADVICE. Counseled pt/family regarding: lab results, diagnosis, need for follow-up Medical Desision Making - Diagnostic Testing Diagnostic test were ordered, analyzed, and reviewed by me: Yes Radiological Interpretation: Interpreted by me - Risk of complications The pt has a mod risk of morbidity or mortality based on: Need for prescription drug management - Departure Departure Disposition: Home Clinical Impression: RUQ abdominal pain, Nausea and vomiting, Anemia Condition: Good Critical Care Time: No Referrals: HERLINDA LÓPEZ MD [Primary Care Provider] - Follow up/PCP as directed Instructions: Nausea and Vomiting, Adult (DC)
[2023-05-10] MEDS ORDERED: Sodium Chloride 0.9% 1000 ML 1,000 ML IV STA (04:10)
[2023-05-10] MEDS ORDERED: Sodium Chloride 0.9% 1000 ML 1,000 ML ONE (04:18)
[2023-05-10 04:31] LABS: Absolute Neutrophil Ct (ANC) 3.09 x10^3/uL (1.4-6.9); BASOPHIL % 0.3 % (0.0-0.4); Basophil (Absolute #) 0.02 x10^3/uL (0-0.4); Eosinophil % 2.1 % (0.00-5.0); Eosinophil (Absolute #) 0.15 x10^3/uL (0-0.5); Hematocrit 35.3 % (35-47); Hemoglobin 11.5 g/dL (12.0-16.0); IMMATURE GRAN # 0.01 x10^3u/L (0.00-0.03); IMMATURE GRAN % 0.1 % (0.00-0.4); Lymphocyte (Absolute #) 3.33 x10^3/uL (1.0-4.6); Lymphocytes % 47.1 % (24.0-44.0); Mean Cell Volume 95.4 fL (78-100); Mean Corpuscular Hemoglobin 31.1 pg (26-32); Mean Corpuscular Hgb Concent. 32.6 g/dL (32-36); Mean Platelet Volume 9.7 fL (7.5-11.0); Monocyte (Absolute #) 0.47 x10^3/uL (0.0-1.3); Monocytes % 6.6 % (0.0-12.0); Neutrophil % 43.8 % (36.0-66.0); Platelet Count 207 x10^3/uL (150-450); Red Cell Distribution Width 14.6 % (11.5-14.0); White Blood Count 7.1 x10^3/uL (4.0-10.5)
[2023-05-10 04:40] LABS: ANION GAP 12.3 MEQ/L (5-15); BILIRUBIN,TOTAL 0.6 mg/dL (0.2-1.3); Creatinine 1 1.2 mg/dL (0.52-1.04); EST GLOMERULAR FILTRATION RATE 46.8 ML/MIN; Potassium 3.7 mmol/L (3.5-5.1); Total Protein 7.6 g/dL (6.3-8.2)
[2023-05-10 05:41] LABS: Appearance Clear (Clear); Bacteria None Seen /HPF (None Seen); Bilirubin Negative (Negative); Blood Negative (Negative); Epithelial Cells None Seen /HPF (None Seen); Glucose, Urine Negative (Negative); Hyaline Casts NONE SEEN /LPF (0-2); Ketones Negative (Negative); Leukocyte Esterase Trace (Negative); Nitrite Negative (Negative); Protein,Urine Dip Negative (Negative); RBC 0-2 /HPF (0-5); Urobilinogen 0.2 mg/dL (0.2); WBC 0-2 /HPF (0-5)
[2023-05-10 05:46] LABS: ADD URINE CULTURE? NO (NO)
--- NOTE | 2023-05-10 06:38 | XRAY ---
CLINICAL HISTORY:abd pain COMPARISON:CT dated 05/06/2023. TECHNIQUE:Multiple axial slices with coronal and sagittal reconstructions from CT scan abdomen and pelvis without contrast were obtained and are submitted for interpretation. FINDINGS: Redemonstration of small 1.1 cm pulmonary calcified nodule in the medial basal segment of the right lung lower lobe. Rest of the visualized lung bases are clear. Cardiothoracic ratio is within normal limits. Liver, spleen, pancreas, adrenals, and left kidney appear unremarkable. Surgical luis felipe are noted in the gallbladder fossa suggestive of cholecystectomy. Redemonstration of tiny 0.7 cm cortical cyst at the upper pole of right kidney. Right kidney is otherwise normal in size and shape. Ureters and urinary bladder are unremarkable. No definite intraluminal calculus or mass is noted. Uterus is not visualized, likely surgically removed. Cervical stump appears unremarkable. Bilateral adnexa appears unremarkable. Gastroesophageal junction, stomach, duodenum, and small bowel loops demonstrate no significant abnormality. Large bowel loops appear unremarkable. Ileocecal junction is intact. Appendix is not visualized, requires surgical correlation. No definite ascites or abdominal lymphadenopathy is noted. Atherosclerotic changes are noted in the abdominal aorta. Degenerative changes are noted in the visualized thoracolumbar spine. Rest of the regional osseous structures and surrounding soft tissues are intact. IMPRESSION: 1. Redemonstration of small pulmonary calcified nodule in the medial basal segment of right lung lower lobe. 2. Stable findings since previous CT examination. Electronically Signed by: Marty Munson MD. (05/10/2023 05:37:28 REPLENISHMENT SPECIALIST)
[2023-05-10 06:40] VITALS: BP 158/97; PULSE 67; O2SAT 95
== END 2023-05-10 06:47 | disposition home or self-care (01) ==
LOC: ED 03:44
DX: R11.2 Nausea with vomiting, unspecified (principal); R10.11 Right upper quadrant pain; D64.9 Anemia, unspecified; R19.7 Diarrhea, unspecified; E78.5 Hyperlipidemia, unspecified; I10 Essential (primary) hypertension; Z79.899 Other long term (current) drug therapy
CPT/HCPCS: 36000; 36415; 74176; 80053; 81001; 83605; 83690; 84484; 85025; 93005; 96360; 96374; 99284